=== PATIENT | female | born 1975 | race American Indian/Alaskan Native ===

== ENCOUNTER 2018-07-26 07:16 | Emergency (ER) | payer SELFPAY ==
--- NOTE | 2018-07-26 08:13 | XRay Report ---
RIGHT ANKLE, 3 views: History: Pain, trauma, swelling. Findings: Mild diffuse soft tissue swelling is identified. No evidence for fracture, bone lesion or significant joint pathology. Small plantar spur is identified. Impression: Soft tissue swelling. No acute osseous injury. Small plantar spur.
[2018-07-26] MEDS ORDERED: TORADOL IM ONE (08:46)
--- NOTE | 2018-07-26 08:49 | Emergency Department Report ---
ED Lower Extremity HPI - General Chief Complaint: Extremity Injury, Lower Stated Complaint: FALL/R KNEE/ANKLE PAIN Time Seen by Provider: 07/26/18 08:41 Source: patient Mode of arrival: Wheelchair Limitations: No Limitations - History of Present Illness Initial Comments: Patient is 43 years old female with no significant past medical history. Patient presented to the ER complaining of right knee and right ankle pain after she fell and twisted her knee and her ankle. Patient denied any other injuries. No head injury. MD Complaint: knee injury, ankle injury - Related Data Previous Rx's Medication Instructions Recorded Last Taken Type HYDROcodone/APAP 5-325 [[place] 1 each PO Q6HR PRN #30 tablet 04/23/15 Unknown Rx 5/325] Allergies Allergy/AdvReac Type Severity Reaction Status Date / Time No Known Allergies Allergy Verified 04/23/15 07:47 ED Review of Systems ROS: Stated complaint: FALL/R KNEE/ANKLE PAIN Other details as noted in HPI Comment: All other systems reviewed and negative Constitutional: denies: chills, fever Respiratory: denies: cough, orthopnea, shortness of breath, SOB with exertion, SOB at rest, wheezing Cardiovascular: denies: chest pain, palpitations Gastrointestinal: denies: abdominal pain, nausea, vomiting ED Past Medical Hx - Past Medical History Previous Medical History?: Yes Hx Hypertension: No Hx Diabetes: No Hx Deep Vein Thrombosis: No Hx Renal Disease: No Hx Sickle Cell Disease: No Hx Seizures: No Hx Asthma: Yes (>1 year, no meds) Hx COPD: No Additional medical history: OBESITY - Surgical History Past Surgical History?: Yes Hx Cholecystectomy: Yes Additional Surgical History: LEFT KNEE SURGERY. - Social History Smoking Status: Never Smoker Substance Use Type: None - Medications Home Medications: Home Medications Medication Instructions Recorded Confirmed Last Taken Type HYDROcodone/APAP 5-325 [[place] 1 each PO Q6HR PRN #30 tablet 04/23/15 Unknown Rx 5/325] ED Physical Exam - General Limitations: No Limitations General appearance: alert, in no apparent distress - Head Head exam: Present: atraumatic, normocephalic, normal inspection - Eye Eye exam: Present: normal appearance - ENT ENT exam: Present: normal exam, normal orophraynx, mucous membranes moist - Neck Neck exam: Present: normal inspection, full ROM. Absent: tenderness, meningismus, lymphadenopathy, thyromegaly - Respiratory Respiratory exam: Present: normal lung sounds bilaterally - Cardiovascular Cardiovascular Exam: Present: regular rate, normal rhythm, normal heart sounds - GI/Abdominal GI/Abdominal exam: Present: soft, normal bowel sounds. Absent: distended, te nderness, guarding, rebound, rigid - Extremities Exam Extremities exam: Present: normal inspection - Expanded Lower Extremity Exam Right Hip exam: Present: normal inspection, full ROM Upper Leg exam: Present: normal inspection, full ROM. Absent: tenderness, swelling Knee exam: Present: normal inspection, tenderness. Absent: full ROM, swelling, abrasion Lower Leg exam: Present: normal inspection, full ROM Ankle exam: Present: normal inspection, full ROM, tenderness, swelling. Absent: abrasion, laceration, ecchymosis - Back Exam Back exam: Present: normal inspection, full ROM. Absent: CVA tenderness (R), CVA tenderness (L), paraspinal tenderness, vertebral tenderness - Neurological Exam Neurological exam: Present: alert, oriented X3, CN II-XII intact, normal gait - Skin Skin exam: Present: warm, intact, normal color ED Course Vital Signs 07/26/18 07:33 Temperature 98.1 F Pulse Rate 75 Respiratory 16 Rate Blood Pressure 129/84 O2 Sat by Pulse 99 Oximetry ED Lower Extremity MDM - Radiology Data Radiology results: report reviewed - Medical Decision Making Patient is 43 years old female with no significant past medical history. Patient presented to the ER complaining of right knee and right ankle pain after she fell and twisted her knee and her ankle. Patient denied any other injuries. No head injury. X-ray of the right knee and right ankle is unremarkable. No fracture or dislocation. Patient received Toradol in the ER and stated that it helped with her pain. Patient be discharged home on Naprosyn and advised to follow-up with her primary care physician in the next 2-3 days. Critical care attestation.: If time is entered above; I have spent that time in minutes in the direct care of this critically ill patient, excluding procedure time. ED Disposition Clinical Impression: Contusion of right knee, Right ankle sprain Disposition: TO HOME OR SELFCARE Is pt being admited?: No Condition: Stable Instructions: Osteoarthritis (ED), Ankle Sprain (ED), Contusion in Adults (ED) Referrals: PRIMARY CARE, [Referring] - 3-5 Days
--- NOTE | 2018-07-26 09:23 | XRay Report ---
RIGHT KNEE, 3 views: History: Right knee injury. Normal bone mineralization. Mild osteoarthritic changes are identified in the lateral compartment and patellofemoral space. There is a moderate joint effusion on the lateral image. No evidence for fracture or suspicious bone lesion. IMPRESSION: Osteoarthritis. Moderate joint effusion. No acute bony injury is detected.
[2018-07-26 10:28] VITALS: BP 130/81
== END 2018-07-26 10:27 | disposition home or self-care (01) ==
LOC: ED 07:16
DX: S93.401A Sprain of unspecified ligament of right ankle, initial encounter (principal); M25.561 Pain in right knee; X50.1XXA Overexertion from prolonged static or awkward postures, initial encounter; Y93.89 Activity, other specified; Y92.89 Other specified places as the place of occurrence of the external cause; Y99.8 Other external cause status
CPT/HCPCS: 73562; 73600; 96372; 99283; J1885